=== PATIENT | male | born 1955 | race Caucasian/White ===

== ENCOUNTER 2023-08-02 16:59 | Inpatient (IN) | payer OTHER, SELFPAY ==
[2023-08-02] VITALS (10 sets, daily range): BP systolic 94–134; BP diastolic 56–87; BMI 21.8
--- NOTE | 2023-08-02 13:20 | W.PN.CARDCBS ---
Today's Communication / Plan
-
LHC today
Impression / Plan
-
PCP: Nadine Hernandez DO
CDY: Joey Phan MD
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 Presented to [facility] ER with lightheadedness and generalized weakness with n/v. He was
hypotensive with SBP 90s and given IV fluids. Denies any chest pain, palps, dyspnea. Initial EKG with acute current inferolateral injury Peak HS Troponin 2805, Peak CK 1077, peak CKMB 22.7. Started on IV heparin.
Admits to an approximate 100lb unintentional weight loss over the past year, with poor appetite, anorexia. GI was consulted and felt that outpt workup including EGD would be appropriate after cardiac issues were managed. A celiac panel was sent and
remains pending. He is not anemic and H/H stable at 13.3/38.4.
Echo 4/5- mildly decreased LVSF, EF 45-50%, basal-mid inferior, basal anterosept and basal inferosept HK, mild , trace MR.
IMPRESSION:
NSTEMI
Unexplained weight loss
Prior CVA/TIA (01/2023)
DM
PAD
Orthostatic Hypotension
Aortic arch atherosclerosis
Chronic tobacco abuse
PLAN:
LHC today
already on DAPT w/asa, plavix
echo results noted
hypotension limits use/increased doses of meds
started on bisoprolol 2.5mg/daily and tolerating
crestor increased to 40mg/daily
Home midodrine was d/c per cards at last OV- will monitor need for restarting
Continue DM meds, ISS for coverage, check HgbA1C
Weight loss- GI workup ongoing (Masoud Corbett MD for followup)
CT chest/abd/pelvis completed, Celiac panel pending, needs UGI/colonoscopy
Tobacco cessation encouraged but he refuses to quit at this time
Will followup with Dr. Phan at discharge
Progress Note - Rolling Chair Pusher
Subjective
Date of Service: August 02, 2023
Physical Exam
Physical Exam
Deferred- placed on cath table on arrival
[2023-08-02] MEDS: NSS 189 ML IV (15:14)
[2023-08-02 15:17] LABS: Glucose - Point of Care 102 mg/dl (70-99)
[2023-08-02 17:05] LABS: Glucose - Point of Care 154 mg/dl (70-99)
--- NOTE | 2023-08-02 17:26 | ITS.CL.CATH ---
[facility] - Catheterization
Cardiac Catheterization
Procedure Report:
LEFT HEART CATHETERIZATION
Date of Procedure: August 02, 2023
Procedures performed:
1: Coronary angiography
2: Left ventricular hemodynamic assessment
Primary Care Physician: Dr. Nadine Hernandez
Primary Employment Trainer: Dr. Joey Phan
INDICATION: The patient is a 68-year-old man with a past medical history of diffuse vascular disease status post right femoropopliteal bypass several years ago, ongoing heavy smoking, recent stroke at the end of last year when he was admitted to
[facility] and was seen by cardiology in consultation. He presented with weakness and some nausea this admission and was noted to have dynamic inferior ST and T wave abnormalities consistent with an evolving acute coronary syndrome.
Cardiac enzymes were positive with a peak CPK of 1077 on Wednesday the . He had no typical angina and has had no symptoms for several days.
ACCESS: The patient was prepped and draped in usual sterile fashion. A 5 Luxembourg[place] sheath was placed in the left common femoral artery using the Seldinger over the wire technique. Ultrasound guidance was used and a micropuncture kit using
[id number] technique. Angiography through the micro sheath showed a good stick of the femoral head. The common femoral artery has smooth sequential 50 to 70% lesions.
HEMODYNAMIC FINDINGS (mmHg):
LV(s/d,EDP): 150/5, 12
Ao(s/d,m): 150/60, 92
ANGIOGRAPHIC FINDINGS:
Single-plane Left Ventriculography in [place] Projection: Not done.
Coronary Angiography:
Dominance: Right
Left Main: Widely patent, medium caliber.
Left Anterior Descending: The left anterior descending artery is heavily calcified throughout the proximal and mid portions. The vessel is small caliber and gives rise to 1 major diagonal branch. These vessels have diffuse moderate luminal
irregularities without focal high-grade clearly obstructive disease and normal distal flow in all vessels. The LAD does have a focal 60 to 70% stenosis after the diagonal takeoff.
Left Circumflex: The left circumflex is a relatively small caliber nondominant system that gives rise to 2 small to medium caliber obtuse marginal branches. The ostial/proximal circumflex has a smooth 60% stenosis followed by a smooth 80% proximal
stenosis. Despite this there is MAKENZIE-3 flow in the distal OM branches which appear widely patent.
Right Coronary: Proximal right total occlusion after a smooth 80 to 90% stenosis. The distal right coronary artery is a large-caliber dominant vessel that gives rise to a small caliber posterior descending artery and at least 2 fairly long but
small caliber posterior left ventricular branches. The right coronary artery is heavily calcified throughout the AV groove all the way down to the bifurcation. There is retrograde filling of what appears to be severely diseased vessel throughout
the AV groove.
Fluoroscopy Time (min): 2.4
Radiation Dose (mGy): 298
DAP (Gy.cm2): 21
Closure device: None. A TR band was applied for hemostasis at the right wrist.
Complications: None.
ASSESSMENT:
1: Severe obstructive two-vessel coronary artery disease with moderate diffuse disease without clear obstruction in the LAD and diagonal branches as described above.
2: The right coronary occlusion is definitely the culprit and the patient's recent acute coronary syndrome. He has reasonable collateral filling via [id number] collaterals.
CONCLUSIONS and RECOMMENDATIONS:
1: Medical therapy for diffuse severe coronary disease. I would only consider PCI if he had symptoms refractory to medical therapy -the only straightforward PCI would probably be the proximal circumflex however given its ostial location and small
caliber even this would be more complex and not without risk.
3: Close clinical follow-up with Dr. Phan as scheduled.
Gia Galindo M.D.
Copy to: Dr. Nadine Hernandez
[2023-08-02] MEDS: NOVOLOG FLEXPEN-MODERATE RESISTANCE 1 UNITS SC (18:14)
--- NOTE | 2023-08-02 19:28 | PTCARENOTE ---
Rec'd pt from tanbark laborer awake and alert with Left groin dsg intact, no bleeding, no hematoma. Pt SB on monitor, RA. VS and groin checks done as per protocol. Admission history and assessment done. See worklist for VS/I and O and assessment.
[2023-08-02] MEDS: LYRICA 100 MG PO (19:47)
[2023-08-02 22:13] LABS: Glucose - Point of Care 213 mg/dl (70-99)
[2023-08-02] MEDS: DESYREL 150 MG PO (22:14)
[2023-08-02] MEDS: LANTUS 0.100000000000000006 UNITS SC (22:14)
--- NOTE | 2023-08-03 00:40 | PTCARENOTE ---
assumed care of patient at the change of shift. AAOx3. denies any cp/sob. patient completed bedrest orders-ambulated with a standby assist to the BR. SB on tele 50s. bp stable. L groin site, CDI. weak pulses/no edema noted. patient requesting home
sleep medications. updated Ed Deborah KELLY. trazodone ordered and given, see mar. educated patient to call for assistance overnight r/t recent fall. patient continues to call appropriately. patient eager to go home today.
[2023-08-03 03:45] VITALS: BP 100/62
[2023-08-03 04:06] VITALS: BMI 21.8
--- NOTE | 2023-08-03 04:06 | PTCARENOTE ---
patient states not sleeping well overnight. ambulated to the bathroom with a standby assist. unsteady on feet at times-patient states this is his baseline. LE weakness. rolling walker provided and educated patient to call RN when he needs
assistance. L groin site CDI. HR SB overnight 40s-50s. bp 100/62. denies any cp/lightheadedness/dizziness.
[2023-08-03 05:23] LABS: Hematocrit 31.1 % (39.0-52.0); Mean Corp Hgb Conc. 35.4 g/dL (33.0-37.0); Mean Corpuscular Hgb 31.6 pg (27.0-31.0); Mean Corpuscular Volume 89.4 fL (80.0-94.0); Mean Platelet Volume 11.2 fL (7.4-10.4); Platelet Count 98 10^3/uL (130-400); Red Blood Cell Count 3.48 10^6/uL (4.70-6.10); Red Cell Dist. Width 12.6 % (11.5-14.5); White Blood Cell Count 5.3 10^3/uL (4.8-10.8)
[2023-08-03 06:06] LABS: Blood Urea Nitrogen 12 mg/dl (9-20); Calcium 8.5 mg/dl (8.4-10.2); Carbon Dioxide 21 mmol/L (22-30); Chloride 108 mmol/L (98-107); Estimated Creatinine Clearance 105 ml/min; Glucose 96 mg/dl (70-99); HDL Cholesterol 36 mg/dl; LDL Cholesterol, Calculated 36 mg/dl; Potassium 3.9 mmol/L (3.5-5.1); Sodium 133 mmol/L (135-145); Total Cholesterol 95 mg/dl (50-199); Triglyceride 117 mg/dl (10-149); Very Low Density Lipoprotein 23 mg/dl (0-30); eGFR > 60.00
[2023-08-03 07:33] VITALS: BP 89/64
[2023-08-03 07:35] VITALS: BP 89/64
[2023-08-03] MEDS: LOW STRENGTH ASPIRIN 81 MG PO (07:40)
[2023-08-03] MEDS: CRESTOR 40 MG PO (07:40)
[2023-08-03] MEDS: PLAVIX 75 MG PO (07:40)
[2023-08-03] MEDS: LYRICA 100 MG PO (07:46)
[2023-08-03 07:48] LABS: Glucose - Point of Care 87 mg/dl (70-99)
[2023-08-03] MEDS: NOVOLOG FLEXPEN-MODERATE RESISTANCE SC (07:48)
[2023-08-03 08:52] LABS: Glycohemoglobin (HgbA1c) 7.1 % (4.0-5.6)
--- NOTE | 2023-08-03 10:00 | W.PN.CARDCBS ---
Addendum entered and electronically signed by Santo Mcclelland MD 08/03/23 11:50:
I saw and examined the patient.
The Auto Glass Installer's note was reviewed and I agree with the note.
Comment: Briefly, 60-year-old man with past medical history of orthostatic hypotension, hyperlipidemia, diabetes and prior CVA who presented with nausea and vomiting and found to have inferior injury pattern on ECG
High-sensitivity troponin peaked at 2805 consistent with NSTEMI
He underwent invasive coronary angiography 08/02/23 with diffuse coronary disease
Currently resting comfortably, asymptomatic from a cardiovascular standpoint
No evidence of decompensated heart failure or mechanical complication on exam
Left femoral access site clean dry intact
Telemetry with sinus rhythm
Planned for medical management of coronary disease as initial strategy, could consider PCI if symptoms are refractory to medications
Continue aspirin/Plavix, high intensity statin
Heart rate and blood pressure unlikely to tolerate beta-ministerio or calcium channel ministerio as patient is maintained on midodrine for orthostasis
Stable for discharge from my perspective, should follow-up with his primary potato chip packaging machine operator Dr. Phan
Original Note:
Today's Communication / Plan
-
groin check in ATC in [address] Phan
continue dapt
GI/weight loss workup ongoing
home today
Impression / Plan
-
PCP: Nadine Hernandez DO
CDY: Joey Phan MD
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 Presented to [facility] ER with lightheadedness and generalized weakness with n/v. He was
hypotensive with SBP 90s and given IV fluids. Denies any chest pain, palps, dyspnea. Initial EKG with acute current inferolateral injury Peak HS Troponin 2805, Peak CK 1077, peak CKMB 22.7. Started on IV heparin.
Admits to an approximate 100lb unintentional weight loss over the past year, with poor appetite, anorexia. GI was consulted and felt that outpt workup including EGD would be appropriate after cardiac issues were managed. A celiac panel was sent and
remains pending. He is not anemic and H/H stable at 13.3/38.4.
Echo 07/29- mildly decreased LVSF, EF 45-50%, basal-mid inferior, basal anterosept and basal inferosept HK, mild , trace MR.
LHC 08/01- severe obstructive 2VCAD in LAD, LCx with total prox RCA occlusion with L-R collaterals
IMPRESSION:
NSTEMI
Severe obstructive 2VCAD, RCA occlusion w/collaterals, medical therapy
Unexplained weight loss
Prior CVA/TIA (01/2023)
DM
PAD
Orthostatic Hypotension
Aortic arch atherosclerosis
Chronic tobacco abuse
PLAN:
Tele- SB 50s, no vt/arrhythmia
Continue dapt w/asa, plavix
echo results noted- mildly decreased EF 45-50%
Bradycardia and hypotension noted- has history of orthostasis with prior midodrine use
unable to tolerate low doses bisoprolol- will hold off for now as well as ACEI and can re-evaluate by cardiology as outpt
crestor increased to 40mg/daily
Home midodrine was d/c per cards at last OV- not orthostatic today- will monitor need for restarting/PRN use
Continue DM meds, ISS for coverage- HgbA1C 7/1%- stable for pt, to follow with PCP for DM management
Weight loss- GI workup ongoing (Masoud Corbett MD for followup)
CT chest/abd/pelvis completed, Celiac panel pending, needs UGI/colonoscopy
daily protonix added
Tobacco cessation encouraged- he is agreeable and has been cutting back slowly
Will followup with Dr. Phan at discharge
Progress Note - Rod Pointer
Subjective
Date of Service: August 03, 2023
Denies cp/palps/dypsnea
oob ambulating
cath site without pain
Objective
Labs:
08/03/23 03:52
08/03/23 03:52
Labs
Hgb 11.0 g/dL (13.0-18.0) L 08/03/23 03:52
Hct 31.1 % (39.0-52.0) L 08/03/23 03:52
Plt Count 98 10^3/uL (130-400) L 08/03/23 03:52
Sodium 133 mmol/L (135-145) L 08/03/23 03:52
Potassium 3.9 mmol/L (3.5-5.1) 08/03/23 03:52
BUN 12 mg/dl (9-20) 08/03/23 03:52
Creatinine 0.6 mg/dL (0.7-1.3) L 08/03/23 03:52
Glucose 96 mg/dl (70-99) 08/03/23 03:52
Vital Signs and I&O:
Vital Signs
Temp Pulse Resp BP Pulse Ox
97.4 F 55 18 64 100
08/03/23 07:35 08/03/23 07:35 08/03/23 07:35 08/03/23 08:28 08/03/23 07:35
Vital Signs
Temp Pulse Resp BP Pulse Ox
97.4 F 55 18 8964 100
08/03/23 07:35 08/03/23 07:35 08/03/23 07:35 08/03/23 08:28 08/03/23 07:35
Intake & Output
08/01/23 08/02/23 08/03/23 08/04/23
06:59 06:59 06:59 06:59
Intake Total 439 / 439
Balance 439 / 439
Physical Exam
Physical Exam
AAOx3, MAEE 5/5
RRR S1 S2 no murmurs
Decreased bibasilar, non labored
soft abd, +bs
left groin site PRINCIPAL WEB DEVELOPER, no ht/bleeding, non tender
bilat extremities w/palpable distal pulses, no edema
[2023-08-03] MEDS: PROTONIX 40 MG PO (10:24)
--- NOTE | 2023-08-03 10:29 | PTCARENOTE ---
Pt received from manufacturing supervisor 2nd shift RN. Ashley, resting in bed. Sinus Ari on cardiac sonographer HR 50s. VSS. L groin dressing CDI. Neurovascular checks for LLE WDL. Pt without complaint at this time. Assessment documented. Plan for discharge home today.
--- NOTE | 2023-08-03 11:01 | W.DS.TRANS ---
DC Summary - Transcriptionist
-
Discharge Instructions:
Discharge Diagnosis/Procedures Cardiac catheterization
Diet Low Cholesterol,Diabetic, Carb Controlled
Driving Restrictions No driving for 24 hours
Instructions:
Stand-Alone Forms: DC Instructions- Cath/EP Lab
Changes to Home Medications: Yes
Discharge Medications:
DC Medications w/original date entered in [facility]
acyclovir 800 mg tablet 800 mg PO BID herpes 08/02/23
aspirin 81 mg tablet 81 mg PO DAILY blood thinner 08/02/23
buprenorphine 5 mcg/hour weekly transdermal patch 1 patch transdermal Q7D for narotic dependent 08/02/23
diphenhydramine HCl 25 mg capsule 75 mg PO HS Allergies 08/02/23
midodrine 5 mg tablet 10 mg PO HS low bp 08/02/23
pregabalin 100 mg capsule 100 mg PO BID nerve pain 08/02/23
triazolam 0.25 mg tablet 0.25 mg PO HS PRN insomnia 08/02/23
clopidogrel 75 mg tablet (Plavix) 75 mg PO DAILY stroke/CAD #90 tabs 08/03/23
insulin glargine 100 unit/mL subcutaneous solution 10 unit SC HS 08/03/23
pantoprazole 40 mg tablet,delayed release 40 mg PO DAILY #90 tabs 08/03/23
rosuvastatin 40 mg tablet 40 mg PO DAILY #90 tabs 08/03/23
trazodone 150 mg tablet 150 mg PO HS 08/03/23
Home Medication Changes
NEW: pantoprazole
DOSE INCREASE: rosuvastatin
Pending Results: No
[2023-08-03 11:30] VITALS: BP 108/74
[2023-08-03 11:56] LABS: Glucose - Point of Care 134 mg/dl (70-99)
--- NOTE | 2023-08-03 15:57 | CM ---
spoke to pt in room, he is prev indep, lives alone in a mobile home with 3 steps to enter. he denies any dc planning needs , he has a rollator at home to use when needed.
== END 2023-08-03 12:45 | disposition home or self-care (01) | DRG 282 ==
LOC: IVU 16:59
PROVIDERS: Nurse Practitioner; ADMITTING PHYSICIAN Internal Medicine Interventional Cardiology; ATTENDING PHYSICIAN Internal Medicine Interventional Cardiology
PROC: B2111ZZ Fluoroscopy of Multiple Coronary Arteries using Low Osmolar Contrast (ICD-10-PCS; 2023-08-02)
PROC: 4A023N7 Measurement of Cardiac Sampling and Pressure, Left Heart, Percutaneous Approach (ICD-10-PCS; 2023-08-02)
DX: I21.4 Non-ST elevation (NSTEMI) myocardial infarction (principal); I25.10 Atherosclerotic heart disease of native coronary artery without angina pectoris; E11.51 Type 2 diabetes mellitus with diabetic peripheral angiopathy without gangrene; I95.1 Orthostatic hypotension; I70.0 Atherosclerosis of aorta; R63.0 Anorexia; F17.200 Nicotine dependence, unspecified, uncomplicated; R63.4 Abnormal weight loss; Z86.73 Personal history of transient ischemic attack (TIA), and cerebral infarction without residual deficits; Z68.21 Body mass index [BMI] 21.0-21.9, adult; Z79.82 Long term (current) use of aspirin; Z79.4 Long term (current) use of insulin; Z79.02 Long term (current) use of antithrombotics/antiplatelets
CPT/HCPCS: 80048; 80061; 82962; 83036; 85027; 93458; C1894; Q9967